=== PATIENT | male | born 1985 | race Caucasian/White ===

== ENCOUNTER 2017-01-06 16:40 | Emergency (ER) | payer BC, OTHER ==
[~2017-01-06] VITALS: Ht 185.4 cm; Wt 82.0 kg
[2017-01-06 18:22] VITALS: BP 125/77; PULSE 69; RESP 17; TEMP 97.4; O2SAT 98
[2017-01-06 18:41] LABS: AUTOMATED NEUTROPHIL # 4.6 TH/MM3 (1.8-7.7); BASOPHIL % 0.6 % (0.0-2.0); EOSINOPHIL # 0.2 TH/MM3 (0-0.4); EOSINOPHIL % 2.4 % (0.0-4.0); HEMATOCRIT 40.7 % (39.0-51.0); HEMO FLAGS DIFF FINAL; LYMPH % 27.3 % (9.0-44.0); MEAN CELL VOLUME 86.2 FL (80.0-100.0); MEAN CORPUSCULAR HEMOGLOBIN 28.8 PG (27.0-34.0); MEAN CORPUSCULAR HGB CONC 33.4 % (32.0-36.0); MONO % 6.7 % (0.0-8.0); PLATELET COUNT 273 TH/MM3 (150-450); RED BLOOD COUNT 4.72 MIL/MM3 (4.50-5.90); RED CELL DISTRIBUTION WIDTH 13.6 % (11.6-17.2); WHITE BLOOD COUNT 7.3 TH/MM3 (4.0-11.0)
[2017-01-06 19:01] LABS: ALT (GPT) 18 U/L (12-78); ANION GAP 6 MEQ/L (5-15); AST (GOT) 9 U/L (15-37); BICARBONATE 28.7 MEQ/L (21.0-32.0); BLOOD UREA NITROGEN 12 MG/DL (7-18); CHLORIDE 109 MEQ/L (98-107); GLOMERULAR FILTRATION RATE 103 ML/MIN (>89); POTASSIUM 4.3 MEQ/L (3.5-5.1); SODIUM (NA) 144 MEQ/L (136-145)
[2017-01-06 19:03] LABS: ALKALINE PHOSPHATASE 56 U/L (45-117); TOTAL BILIRUBIN ADULT 0.6 MG/DL (0.2-1.0)
--- NOTE | 2017-01-06 19:49 | PD ---
HPI Chief Complaint: Psychiatric Symptoms Time Seen by Provider: 19:46 Travel History International Travel<30 days: No Contact w/Intl Traveler<30days: No Traveled to known affect area: No History of Present Illness HPI 31-year-old male that presents to the ED for evaluation of psych. Patient was [place] acted by police after apparently he called the suicide hotline. Per patient he is having difficulty secondary to losing his marriage and per patient he believes that his is not telling him everything. He states that he is being [place] acted in the past but denies being medicated for anything. He denies any history of depression or anxiety. Denies any thoughts of hurting anyone else other than himself. No drugs or alcohol. Denies any medical issues. No recent injuries or falls. No allergies to medication. Symptoms appear to be moderate. They appear to be worsening for the past couple of weeks. PFSH Past Medical History Anxiety: Yes Depression: Yes Diminished Hearing: No Tetanus Vaccination: Unknown Past Surgical History Tonsillectomy: Yes Social History Alcohol Use: No Tobacco Use: Yes (1 ppd) Substance Use: Yes (marijaunia occasionally) Allergies-Medications (Allergen,Severity, Reaction): Coded Allergies: No Known Allergies (Unverified , 01/06/17) Review of Systems Except as stated in HPI: all other systems reviewed are Neg Physical Exam Narrative GENERAL: SKIN: Warm and dry. HEAD: Atraumatic. Normocephalic. EYES: Pupils equal and round. No scleral icterus. No injection or drainage. ENT: No nasal bleeding or discharge. Mucous membranes pink and moist. Tongue is midline. No uvula deviation. NECK: Trachea midline. No JVD. CARDIOVASCULAR: Regular rate and rhythm. RESPIRATORY: No accessory muscle use. Clear to auscultation. Breath sounds equal bilaterally. GASTROINTESTINAL: Abdomen soft, non-tender, nondistended. Hepatic and splenic margins not palpable. MUSCULOSKELETAL: Extremities without clubbing, cyanosis, or edema. No obvious deformities. Full range of motion of the upper and lower extremities bilaterally. 2+ pulses bilaterally. NEUROLOGICAL: Awake and alert. No obvious cranial nerve deficits. Motor grossly within normal limits. Five out of 5 muscle strength in the arms and legs. Normal speech. PSYCHIATRIC: Depressed mood and affect; insight and judgment normal. Data Data Last Documented VS Vital Signs Date Time Temp Pulse Resp B/P Pulse Ox O2 Delivery O2 Flow Rate FiO2 4/13/17 18:22 97.4 69 17 125/77 98 Orders Complete Blood Count With Diff (01/06/17 18:18) Comprehensive Metabolic Panel (01/06/17 18:18) Psych Screen (01/06/17 18:18) Drug Screen, Random Urine (01/06/17 18:18) Alcohol (Ethanol) (01/06/17 18:18) Labs Laboratory Tests Test 01/06/17 18:32 White Blood Count 7.3 TH/MM3 Red Blood Count 4.72 MIL/MM3 Hemoglobin 13.6 GM/DL Hematocrit 40.7 % Mean Corpuscular Volume 86.2 FL Mean Corpuscular Hemoglobin 28.8 PG Mean Corpuscular Hemoglobin 33.4 % Concent Red Cell Distribution Width 13.6 % Platelet Count 273 TH/MM3 Mean Platelet Volume 7.9 FL Neutrophils (%) (Auto) 63.0 % Lymphocytes (%) (Auto) 27.3 % Monocytes (%) (Auto) 6.7 % Eosinophils (%) (Auto) 2.4 % Basophils (%) (Auto) 0.6 % Neutrophils # (Auto) 4.6 TH/MM3 Lymphocytes # (Auto) 2.0 TH/MM3 Monocytes # (Auto) 0.5 TH/MM3 Eosinophils # (Auto) 0.2 TH/MM3 Basophils # (Auto) 0.0 TH/MM3 CBC Comment DIFF FINAL Differential Comment Sodium Level 144 MEQ/L Potassium Level 4.3 MEQ/L Chloride Level 109 MEQ/L Carbon Dioxide Level 28.7 MEQ/L Anion Gap 6 MEQ/L Blood Urea Nitrogen 12 MG/DL Creatinine 0.86 MG/DL Estimat Glomerular Filtration 103 ML/MIN Rate Random Glucose 95 MG/DL Calcium Level 9.2 MG/DL Total Bilirubin 0.6 MG/DL Aspartate Amino Transf 9 U/L (AST/SGOT) Alanine Aminotransferase 18 U/L (ALT/SGPT) Alkaline Phosphatase 56 U/L Total Protein 7.2 GM/DL Albumin 4.0 GM/DL Ethyl Alcohol Level LESS THAN 3 MG/DL MDM Medical Decision Making Medical Screen Exam Complete: Yes Emergency Medical Condition: Yes Medical Record Reviewed: Yes Interpretation(s) CBC & BMP Diagram 01/06/17 18:32 LFTs WNL tox negative Differential Diagnosis Depression versus suicidal ideation versus anxiety versus adjustment disorder versus mood disorder versus bipolar disorder versus schizophrenia versus paranoid disorder versus psychosis versus substance abuse versus alcohol abuse versus alcohol induced psychosis versus homicidality addition versus cutting versus personality disorder Narrative Course 31-year-old male that presents to the ED for evaluation of psych. Patient was properly examined and was found to have signs and symptoms consistent with psychiatric illness. No sign of acute medical distress. Patient was medically clear. Okay to be seen by psych. Mental health screening was discussed with the patient. Diagnosis Primary Impression: Mood disorder Ronald Samuels Jan 06, 2017 19:49
[2017-01-06 20:01] VITALS: BP 134/81; PULSE 63; RESP 16; O2SAT 100
[2017-01-06 21:48] LABS: AMPHETAMINE, URINE NEG (NEG); BARBITURATES, URINE NEG (NEG); COCAINE, URINE NEG (NEG)
[2017-01-06 22:26] VITALS: BP 106/52; PULSE 60; RESP 18; O2SAT 97
[2017-01-07 02:00] VITALS: BP 110/58; PULSE 55; RESP 18; O2SAT 97
[2017-01-07 06:19] VITALS: BP 110/67; PULSE 70; RESP 19; O2SAT 98
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
== END 2017-01-07 11:49 | disposition home or self-care (01) ==
LOC: NEDAMB 16:40 → NEPJ 01-07 11:49
DX: F32.9 Major depressive disorder, single episode, unspecified (principal); F41.8 Other specified anxiety disorders; F17.210 Nicotine dependence, cigarettes, uncomplicated
CPT/HCPCS: 80053; 80307; 85025; 99285

== ENCOUNTER 2018-10-04 00:54 | Inpatient (IN) ==
--- NOTE | 2018-10-04 01:47 | ED ---
HPI General Chief Complaint: Psychiatric Symptoms Stated Complaint: psych screen/[place] PD Time Seen by Provider: 10/04/18 01:10 Source: patient and police Mode of arrival: ambulatory Limitations: no limitations History of Present Illness HPI Narrative: 33-year-old white male presents emergency department under [place] act by PD. Patient had contacted police advising them he was suicidal. The patient is very vague on his plan on self-harm. He states that he is in a bad place. He also claims that he is hallucinating. He alleges that he has not drank alcohol on 4 days and stop smoking marijuana 3 days ago. Denies any other drugs. No medical complaints acutely. Has chronic left ankle pain after a fibular fracture. Currently in a walking boot. Related Data Home Medications Medication Instructions Recorded Confirmed No Known Home Medications 09/23/18 10/04/18 Allergies Allergy/AdvReac Type Severity Reaction Status Date / Time No Known Allergies Allergy Verified 10/04/18 01:47 Review of Systems ROS: all other systems reviewed are negative PMFSH History History Provided By: Patient Medical History Medical History Patient denies medical problems (Acute) Surgical History Surgical History Hx of tonsillectomy (Acute) Social History Social History Substance History: Active Abuse Second Hand Smoke Exposure: Yes Smoking Status: Current every day smoker Tobacco Type: Cigarettes How Often Do You Have a Drink Containing Alcohol: 2 to 3 times a week Recent Travel in [facility] within the Last 8 Weeks: No Recent Out of Country Travel within the Last 8 Weeks: No Exam Narrative Exam Narrative: GENERAL: Well-nourished, well-developed patient. SKIN: Warm and dry. HEAD: Normocephalic and atraumatic. EYES: No scleral icterus. No injection or drainage. ENT: No nasal drainage noted. Mucous membranes pink. Airway patent. NECK: Supple, trachea midline. Moves head freely without obvious discomfort. CARDIOVASCULAR: Regular rate and rhythm without murmurs, gallops, or rubs. RESPIRATORY: Breath sounds equal bilaterally. No accessory muscle use. GASTROINTESTINAL: Abdomen soft, non-tender, nondistended. EXTREMITIES: No cyanosis . Examination of the left lower extremity reveals trace edema in the lateral ankle and foot. Patient complains of distal fibular pain. Distal forefoot and toes are normal. Heel and Achilles are normal. Patient has intact sensation with good distal pulses. No pain in the knee or hip. The right lower extremity as well as upper extremities are unremarkable. BACK: Nontender without obvious deformity. No CVA tenderness. NEURO: Patient is alert and oriented. no sensorimotor deficits. Nonfocal. Normal speech. PSYCH: No delusions. No auditory or visual hallucinations. Course Initial Documented Vital Signs Temperature 98.1 F 10/04/18 01:04 Pulse Rate 66 10/04/18 01:04 Respiratory Rate 18 10/04/18 01:04 Blood Pressure 153/87 H 10/04/18 01:04 Pulse Oximetry 100 10/04/18 01:04 Last Documented Vital Signs Temperature 98.1 F 10/04/18 01:04 Pulse Rate 66 10/04/18 01:04 Respiratory Rate 18 10/04/18 01:04 Blood Pressure 153/87 H 10/04/18 01:04 Pulse Oximetry 100 10/04/18 01:04 Medical Decision Making MDM Narrative Medical decision making narrative: We will perform routine laboratory testing for medical clearance Patient's potassium 3.2. This is corrected with potassium 40 mEq p.o. The patient has been medically cleared. Medical Screen Exam Complete: Yes Emergency Medical Condition: Yes Differential Diagnosis Differential Diagnosis: MDM: High Differential diagnoses: Schizophrenia, schizoaffective disorder, bipolar, anxiety, depression, adjustment reaction, mood disorder NOS, ODD, depressive disorder NOS, psychosis NOS, substance induced mood disorder, infection, electrolyte abnormality, malingering. Mental health screening discussed with the patient. Psychiatric screen ordered. Lab Data Result diagrams: 10/04/18 02:00 Lab Results 10/04/18 10/04/18 Range/Units 02:00 02:00 Sodium 142 (136-145) meq/L Potassium 3.3 L (3.5-5.1) meq/L Chloride 105 (98-107) meq/L Carbon Dioxide 28.9 (21.0-32.0) meq/L Anion Gap 8 (5-15) meq/L BUN 9 (7-18) mg/dL Creatinine 0.65 (0.60-1.30) mg/dL Estimated GFR Greater than 89 (>89) mL/min Random Glucose 120 H (74-106) mg/dL Calcium 9.0 (8.5-10.1) mg/dL Total Bilirubin 0.8 (0.2-1.0) mg/dL AST 18 (15-37) U/L ALT 17 (12-78) U/L Alkaline Phosphatase 81 (45-117) U/L Total Protein 7.6 (6.4-8.2) g/dL Albumin 4.1 (3.4-5.0) g/dL Urine Opiates Screen Neg (Neg) Ur Barbiturates Screen Neg (Neg) Ur Amphetamines Screen Neg (Neg) U Benzodiazepines Scrn Neg (Neg) Urine Cocaine Screen Neg (Neg) U Cannabinoids Screen Pos H (Neg) Serum Alcohol Less than 3 (0-5) mg/dL Discharge Plan Discharge Disposition Patient Disposition: Sign Out(ED Internal Use Only) Discharge Condition Condition: Stable Physicians Team ED Provider: Kacy Jang ED Midlevel Provider: Mark Calabrese Primary Care Provider: Primary Care BangiAva Rxs /Orders / Referrals /Forms Prescriptions: No Action No Known Home Medications RF: 0 Discharge Interventions Interventions: Vital Signs Last Done: 10/04/18 01:50 Status ED Status: With Doctor
[2018-10-04 02:20] LABS: Amphetamine Screen,Urine Neg (Neg); Barbiturate Screen,Urine Neg (Neg); Cannabinoid Screen,Urine Pos (Neg); Cocaine Screen,Urine Neg (Neg)
[2018-10-04 02:22] LABS: Opiate Screen,Urine Neg (Neg)
[2018-10-04 02:26] LABS: Albumin 4.1 g/dL (3.4-5.0); Anion Gap 8 meq/L (5-15); Aspartate Aminotransferase 18 U/L (15-37); Blood Urea Nitrogen 9 mg/dL (7-18); Carbon Dioxide 28.9 meq/L (21.0-32.0); Chloride 105 meq/L (98-107); Glomerular Filtration Rate Greater Than 89 mL/min (>89); Glucose,Random 120 mg/dL (74-106); Potassium 3.3 meq/L (3.5-5.1); Sodium 142 meq/L (136-145)
[2018-10-04 02:27] LABS: Alanine Aminotransferase 17 U/L (12-78)
[2018-10-04 02:30] LABS: Alkaline Phosphatase 81 U/L (45-117); Total Protein 7.6 g/dL (6.4-8.2)
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
[2018-10-04] MEDS ORDERED: Aluminum/Magnesium/Simethacone Susp 30 ML UDC PO PRN (11:24)
[2018-10-04] MEDS ORDERED: LORazepam 1 MG Tablet PO PRN (11:28)
[2018-10-04] MEDS ORDERED: Haloperidol Inj 5 MG/ML Ampul IV.PUSH PRN (11:28)
[2018-10-05 07:11] LABS: Anion Gap 6 meq/L (5-15); Blood Urea Nitrogen 11 mg/dL (7-18); Calcium 9.6 mg/dL (8.5-10.1); Carbon Dioxide 27.6 meq/L (21.0-32.0); Chloride 109 meq/L (98-107); Cholesterol 140 mg/dL (120-200); Glomerular Filtration Rate Greater Than 89 mL/min (>89); Glucose,Random 105 mg/dL (74-106); Sodium 143 meq/L (136-145)
[2018-10-05 07:13] LABS: Chol/HDL Ratio 2.91 Ratio; HDL Cholesterol 48.1 mg/dL (40.0-60.0); LDL Cholesterol,Calculated 79 mg/dL (0-99); Triglycerides 66 mg/dL (42-150)
--- NOTE | 2018-10-05 13:06 | ECG ---
Date Performed: 10/05/2018 Time Performed: 12:52:52 PTAGE: 33 years EKG: Sinus rhythm EARLY REPOLARIZATION TALL T-WAVES, SUGGESTS HYPERKALEMIA ABNORMAL ECG NO PREVIOUS TRACING DOCTOR: Oscar Hylton Interpretating Date/Time 10/05/2018 13:04:25
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
[2018-10-05] MEDS: FLUoxetine 20 MG Capsule PO SCH (15:03)
[2018-10-05 17:21] LABS: Hemoglobin A1c 5.1 % (4.3-6.0)
[2018-10-05] MEDS: OLANZapine 10 MG Tablet PO SCH (20:19)
[2018-10-06] MEDS: FLUoxetine 20 MG Capsule PO SCH (08:05)
--- NOTE | 2018-10-06 10:48 | P.PNPSY ---
Subjective Chief Complaint: "I am in a bad place" Remarks: Patient seen for follow-up, chart reviewed, patient discussed with nursing staff ; we reviewed the patient's mood, thoughts, and behaviors from overnight and this morning. Nursing reports that the patient became agitated in the evening again statements that he needed to punch something and he eventually did punch the wall in the hallway but then calm down after the event and after given Atarax 50 mg p.o. The patient slept 6 hours overnight and has had no other episodes of agitation. He was seen sitting in the day room after breakfast. He was pleasant cooperative with interview and did display his nervous laughter that is incongruent with stated mood of depression. He was asked about the agitation over last evening and he reports "I had a lot of energy built up and I was feeling out of control." We discussed the expectation that current treatment plan will lead to decreased intensity of anxiety and depression and improved control of behaviors and he remains agreeable with plan. He denies any suicidal or homicidal ideations and he denies any active auditory or visual hallucinations. Review of Systems Musculoskeletal: Reports abnormal walking, Reports joint pain (Left ankle) Mental Status Examination Appearance: Appropriate Consciousness: Alert Orientation: x4 Motor Activity: Abnormal gait (Patient favors right leg while he walks due to recent injury to left ankle) Speech: Unremarkable Language: Adequate Fund of Knowledge: Adequate Attention and Concentration: Adequate Memory: Unremarkable Mood: Sad, Irritable Affect: Other (Incongruent laughter most likely related to anxiety) Thought Process & Associations: Intact, Logical, Goal directed Thought Content: Appropriate (No signs of responding to internal stimuli and he denies delusions today) Hallucination Type: None Delusion Type: None (But he continues to behave in a guarded manner) Suicidal Ideation: No Suicidal Plan: No Suicidal Intention: No Homicidal Ideation: No Homicidal Plan: No Homicidal Intention: No Insight: Fair Judgment: Impulsive Assessment and Plan - Assessment (1) Major depressive disorder, recurrent, severe with psychotic features Code(s): F33.3 - Major depressive disorder, recurrent, severe with psychotic symptoms Status: Acute (2) Alcohol abuse Code(s): F10.10 - Alcohol abuse, uncomplicated Status: Acute - Plan Plan: 10/05/2018. Initial treatment plan: 1. Continue with admission to inpatient psychiatry at [facility]; convert to voluntary/competent legal status. 2. Routine unit precautions. 3. Comfort medications ordered for as needed treatment of constipation, heartburn, diarrhea, and mild pain. 4. Hydroxyzine 50mg po q6H prn anxiety/insomnia. 5. Start Prozac 20 mg/day for treatment of depression and anxiety. 6. Start Zyprexa 10 mg at bedtime for adjunctive treatment of mood with psychosis. 7. Patient will participate in the unit programming to include group therapies , milieu therapy and recreational therapies. 8. Continue alcohol withdrawal protocol for at least 24 additional hours and will discontinue if no signs of withdrawals. 9. Discharge planning: The patient expressed interest in residential treatment for substance use disorders but recognizes he will need an opportunity to allow him to follow-up with psychiatry for treatment of his depression. Estimated LOS : 5-7 days 10/06/2018: Fair initial response to treatment; the patient was able to get adequate sleep last night and he is denying active thoughts of hurting self or others and he is also denying auditory hallucinations and he did not volunteer any delusional thinking. He seems to have tolerated the start of medications as well as the structure of inpatient treatment and would benefit from 2-3 more days to ensure risks of self-harm or harm to others have been fully mitigated. Continue inpatient psychiatric treatment plan and continued observations to mitigate risks. Discharge planning: The patient expressed interest in residential treatment for substance use disorders but recognizes he will need an opportunity to allow him to follow-up with psychiatry for treatment of his depression. Anticipate discharge early next week. Justification for Continued Inpatient Stay: Patient remains an elevated risk for self-harm and harm to others as evidenced by his aggressive behavior overnight and will require further inpatient stabilization and preparation of a safe discharge plan. Moving patient to a less restrictive environment at this time may result in decompensation.
--- NOTE | 2018-10-06 11:47 | P.DIET ---
Nutritional Evaluation Type of nutrition evaluation: initial Nutrition screening: Weight Loss > 10 lbs Screening comments: 10/06/18 WLS Objective - Diagnosis adjustment disorder with depressed mood - Objective Objective Comments: Meds: joseph leal Labs: random glucose 120 105 Assessment Assessment: Pt currently at nutritional risk r/t reported unplanned wt loss for more than 10lbs in last 2 months. Pt currently on a regular diet and is consuming 75-100% of most meals per chart. RD will continue to monitor pts nutritional status and recommend a PO supplement as needed. Continue to monitor pts PO intake and tolerance. Labs reviewed, dietitian following. Recommendations: 1. RD will continue to monitor pts nutritional status and recommend a PO supplement as needed 2. Continue to monitor pts PO intake and tolerance 3. Dietitian following Dietitian to Monitor: Lab values, Glucose level, Intake & Output, Diet tolerance , Weight change, PO Intake, Medical course
--- NOTE | 2018-10-06 13:42 | P.TTN ---
- Patient Problems Problems: 1. Discharge planning 2. Medication compliance 3. Knowledge deficit 4. Lack of coping skills - Progress Toward Goals Provider Present: Other (Dr. Edwardspatient is depressed, suffering from psychosis, patient needs to remain for further stabilization.) Psychiatric Counselors Present: Hiram Campbell Jr., [facility] (Patient is homeless, patient is seeking placement at the either the [facility] or [facility] for residential treatment. Counselor Orquidea will follow up.), Mary Henning [facility] Group Spec/RT/OT/GRACE Present: LESLY Torres (Patient attends select groups and is redirectable.) - Documentation Teaching Recipient: Family
--- NOTE | 2018-10-06 14:01 | XR ---
EXAM DATE: 10/06/2018 1:52 PM EST AGE/SEX: 33 years / Male INDICATIONS: Left ankle pain evaluate ankle fracture. CLINICAL DATA: This is the patient's initial encounter. Patient reports that signs and symptoms have been present for 2 months and indicates a pain score of 3/10. MEDICAL/SURGICAL HISTORY: . Left ankle fracture. Tonsillectomy. COMPARISON: [facility], ANKLE COMPLETE LEFT MIN 3V, 07/27/2018. . FINDINGS: There is a fracture of the distal fibula above the lateral malleolus without any significan t angulation of the patient. The fracture appears healed for the most part for technique. CONCLUSION: Old fracture of the distal fibula appears healed for the most part for technique. Electronically signed by: Mary Grace Godinez MD Board Certified Radiologist 10/06/2018 1:59 PM EST
[2018-10-06] MEDS: OLANZapine 10 MG Tablet PO SCH (20:53)
[2018-10-07] MEDS: FLUoxetine 20 MG Capsule PO SCH (08:45)
--- NOTE | 2018-10-07 15:57 | P.PNPSY ---
Subjective Chief Complaint: "I am in a bad place" Remarks: Patient was seen and case discussed with nursing. Patient is psychotic during this interview. He is religiously preoccupied. Patient says she has bothersome homicidal ideations towards no one in particular. He denies any active intent or plan of hurting anybody here or an outside. He was asked to speak to staff if he developed any intent of doing so. Patient is having hallucinations from J [place]. Ideas of reference. Review of Systems All other systems reviewed negative except as stated in HPI Mental Status Examination Appearance: Appropriate Consciousness: Alert Orientation: x4 Motor Activity: Abnormal gait (Patient favors right leg while he walks due to recent injury to left ankle) Speech: Unremarkable Language: Adequate Fund of Knowledge: Adequate Attention and Concentration: Adequate Memory: Unremarkable Mood: Sad, Irritable Affect: Other (Incongruent laughter most likely related to anxiety) Thought Process & Associations: Disorganized Thought Content: Appropriate (No signs of responding to internal stimuli and he denies delusions today) Hallucination Type: None Delusion Type: None (But he continues to behave in a guarded manner) Suicidal Ideation: No Suicidal Plan: No Suicidal Intention: No Homicidal Ideation: Yes Homicidal Plan: No Homicidal Intention: No Insight: Fair Judgment: Impulsive Assessment and Plan - Assessment (1) Major depressive disorder, recurrent, severe with psychotic features Code(s): F33.3 - Major depressive disorder, recurrent, severe with psychotic symptoms Status: Acute (2) Alcohol abuse Code(s): F10.10 - Alcohol abuse, uncomplicated Status: Acute - Plan Plan: Consider increase in Zyprexa Justification for Continued Inpatient Stay: Patient would decompensate in a less restrictive setting
[2018-10-07] MEDS: OLANZapine 10 MG Tablet PO SCH (21:15)
[2018-10-08] MEDS: FLUoxetine 20 MG Capsule PO SCH (09:23)
--- NOTE | 2018-10-08 13:19 | P.PNPSY ---
Subjective Chief Complaint: "I am in a bad place" Remarks: Reviewed electronic medical record and discussed with nursing staff. Rounded with JESSICA Greco. Patient denies auditory or visual hallucinations. Denies SI/HI. States that he is currently homeless. He was planning to live with his grandmother but she does not want him to move in. He is hoping that Case Management can help him. He has no source of income. He is vague when answering questions . Preoccupied on his discharge and where he is going to live. Sad and mood is flat. Review of Systems All other systems reviewed negative except as stated in HPI Mental Status Examination Appearance: Appropriate Consciousness: Alert Orientation: x4 Motor Activity: Abnormal gait (Patient favors right leg while he walks due to recent injury to left ankle) Speech: Unremarkable Language: Adequate Fund of Knowledge: Adequate Attention and Concentration: Adequate Memory: Unremarkable Mood: Sad Affect: Other (Incongruent laughter most likely related to anxiety) Thought Process & Associations: Disorganized Thought Content: Appropriate (No signs of responding to internal stimuli and he denies delusions today) Hallucination Type: None Delusion Type: None (But he continues to behave in a guarded manner) Suicidal Ideation: No Suicidal Plan: No Suicidal Intention: No Homicidal Ideation: No Homicidal Plan: No Homicidal Intention: No Insight: Fair Judgment: Impulsive Assessment and Plan - Assessment (1) Major depressive disorder, recurrent, severe with psychotic features Code(s): F33.3 - Major depressive disorder, recurrent, severe with psychotic symptoms Status: Acute - Plan Plan: Continue current treatment plan. Justification for Continued Inpatient Stay: Moving patient to a less restrictive environment may result in his decompensation.
[2018-10-08] MEDS: OLANZapine 10 MG Tablet PO SCH (20:18)
[2018-10-09] MEDS: FLUoxetine 20 MG Capsule PO SCH (08:25)
--- NOTE | 2018-10-09 14:21 | P.PNPSY ---
Subjective Chief Complaint: "I am in a bad place" Remarks: Patient seen for follow-up, chart reviewed, patient discussed with nursing staff ; we reviewed the patient's mood, thoughts, and behaviors from overnight and this morning. Nurse reports the patient slept well but his behavior remains odd as evidenced by his evasiveness with questioning by staff and incongruent laughter. Patient was observed seemingly acting appropriately with peers in the milieu but upon questioning he is guarded with provider and unable to give definitive answers to his questions. He continues to describe feelings of derealization and not knowing the date and makes comments about "I do not even know who I really am". Patient was asked about suicidality and expressed an ambivalent about living or dying. He was asked about discharge plans and he stress and anxiety about being discharged too soon and without a definitive place to go. The patient was given a list of 9 different facilities that he could call to see about recovery treatment and residential placement but he has been uncooperative. Patient had an x-ray of his left ankle which showed that it was healing appropriately. Patient reports good tolerability of his medications and feels like he is doing better and certainly sleeping better. Mental Status Examination Appearance: Appropriate Consciousness: Alert Orientation: x4 Motor Activity: Abnormal gait (Patient favors right leg while he walks due to recent injury to left ankle) Speech: Unremarkable Language: Adequate Fund of Knowledge: Adequate Attention and Concentration: Adequate Memory: Unremarkable Mood: Sad, Anxious Affect: Other (Incongruent laughter most likely related to anxiety) Thought Process & Associations: Disorganized Thought Content: Appropriate (No signs of responding to internal stimuli and he denies delusions today) Hallucination Type: None Delusion Type: None (But he continues to behave in a guarded manner) Suicidal Ideation: No (Patient was evasive with questions about suicidality and expressed ambivalence about living) Suicidal Plan: No Suicidal Intention: No Homicidal Ideation: No Homicidal Plan: No Homicidal Intention: No Insight: Fair Judgment: Impulsive Assessment and Plan - Assessment (1) Major depressive disorder, recurrent, severe with psychotic features Code(s): F33.3 - Major depressive disorder, recurrent, severe with psychotic symptoms Status: Acute (2) Alcohol abuse Code(s): F10.10 - Alcohol abuse, uncomplicated Status: Acute - Plan Plan: 10/09/2018: Fair response to treatment; he has been calm cooperative and seems to be interacting appropriate with the milieu but his interactions with staff are very odd and he is unable to give definitive answers about whether he is still suicidal and whether he is motivated for his recovery. As was discussed on admission, there are secondary gain issues for this patient might be a cause for his atypical presentation but he will be given the benefit of the doubt with continued treatment of depression with psychotic symptoms with the hope that his disorganized thought processes sees with interactions with staff will improve in a definitive safety plan and discharge plan can be formulated. Continue current inpatient psychiatric treatment plan. Anticipate discharge this week; the patient is homeless and seeking recovery treatment options however he has been uncooperative and unrealistic with community options that are available for him. Justification for Continued Inpatient Stay: Patient remains an elevated risk for self-harm and will require further inpatient stabilization and preparation of a safe discharge plan. Moving patient to a less restrictive environment at this time may result in decompensation.
[2018-10-09] MEDS: OLANZapine 10 MG Tablet PO SCH (21:20)
[2018-10-10] MEDS: FLUoxetine 20 MG Capsule PO SCH (08:58)
--- NOTE | 2018-10-10 13:56 | P.PNPSY ---
Subjective Chief Complaint: "I am in a bad place" Remarks: Patient seen for follow-up, chart reviewed, patient discussed with nursing staff ; we reviewed the patient's mood, thoughts, and behaviors from overnight and this morning. Nursing reports the patient had 8 hours of restful sleep overnight. Nursing describes him as pleasant and cooperative. He has been denying suicidal or homicidal ideations and denies auditory or visual hallucinations. Nurse reports that the patient tends to pace on the unit and no longer appears to be favoring his ankle. The patient was seen at bedside after lunch in conjunction with his social media director. The patient reports satisfactory response to his Zyprexa to help him sleep at night and reports mood is improving. He expressed continued motivation to find a recovery treatment program for his substance use and he would like to go to [place] where he reports his uncle works for [employer]. The patient does not have any contact information for this uncle but he did agree to work with unit social media director to get accepted into the [employer] program. Patient reports feeling safe with plan to discharge to recovery program. Mental Status Examination Appearance: Appropriate Consciousness: Alert Orientation: x4 Motor Activity: Normal gait Speech: Unremarkable Language: Adequate Fund of Knowledge: Adequate Attention and Concentration: Adequate Memory: Unremarkable Mood: Sad, Anxious Affect: Other (Incongruent laughter most likely related to anxiety) Thought Process & Associations: Intact, Logical, Goal directed (Improved from yesterday's mental status) Thought Content: Appropriate (No signs of responding to internal stimuli and he denies delusions today) Hallucination Type: None Delusion Type: None (But he continues to behave in a guarded manner) Suicidal Ideation: No Suicidal Plan: No Suicidal Intention: No Homicidal Ideation: No Homicidal Plan: No Homicidal Intention: No Insight: Fair Judgment: Impulsive Assessment and Plan - Assessment (1) Major depressive disorder, recurrent, severe with psychotic features Code(s): F33.3 - Major depressive disorder, recurrent, severe with psychotic symptoms Status: Acute (2) Alcohol abuse Code(s): F10.10 - Alcohol abuse, uncomplicated Status: Acute - Plan Plan: 10/09/2018: Fair response to treatment; he has been calm cooperative and seems to be interacting appropriate with the milieu but his interactions with staff are very odd and he is unable to give definitive answers about whether he is still suicidal and whether he is motivated for his recovery. As was discussed on admission, there are secondary gain issues for this patient might be a cause for his atypical presentation but he will be given the benefit of the doubt with continued treatment of depression with psychotic symptoms with the hope that his disorganized thought processes sees with interactions with staff will improve in a definitive safety plan and discharge plan can be formulated. Continue current inpatient psychiatric treatment plan. Anticipate discharge this week; the patient is homeless and seeking recovery treatment options however he has been uncooperative and unrealistic with community options that are available for him. 10/10/2018: Good response to treatment; patient's behavior on the unit has continued to be appropriate and appear to be based on a lack of anxiety and a euthymic mood despite the patient's continued complaint of anxiety and depression. The patient is no longer complaining of suicidal or homicidal ideations and definitively denied suicidal ideations on today's exam. He has been minimally cooperative with discharge planning prior to today but will sit down with unit social media director and apply for a place and sober [facility]. If patient is not satisfied with placement in [facility] he will be offered with some alternatives and plan for discharge either Tuesday or . Continue current inpatient psychiatric treatment plan. Anticipate discharge this week; the patient is homeless and seeking recovery treatment options however he has been uncooperative and unrealistic with community options that are available for him. Justification for Continued Inpatient Stay: Patient remains an elevated risk for self-harm and will require further inpatient stabilization and preparation of a safe discharge plan. Moving patient to a less restrictive environment at this time may result in decompensation.
[2018-10-10 17:13] VITALS: RESP 18
[2018-10-10] MEDS: OLANZapine 10 MG Tablet PO SCH (20:11)
[2018-10-11] MEDS: FLUoxetine 20 MG Capsule PO SCH (08:02)
--- NOTE | 2018-10-11 17:05 | P.PNPSY ---
Subjective Chief Complaint: "I am in a bad place" Remarks: Patient seen for follow-up, chart reviewed, patient discussed with nursing staff ; we reviewed the patient's mood, thoughts, and behaviors from overnight and this morning. Nurse reports the patient slept 7 hours overnight. Patient had a difficult evening yesterday as he was reprimanded for violating boundary rules with another female patient. He became agitated and punched a wall reportedly after being moved from the 2600 ALT of 2700 all. Patient was able to be redirected and did not require an emergency treatment order. Patient was seen this morning lying in bed asleep after breakfast but easy to awaken. He expressed remorse for his behavior the evening before and he expressed understanding that he cannot be making physical contact with other patients. He denies any suicidal or homicidal ideations. When asked about his discharge planning he is evasive and give excuses as to why he is yet to make contact with [facility] as previously planned. The patient continues to complain of difficulty with focus and concentration and getting easily confused. The patient was asked about safety planning and how he would respond to adversity once discharged and he expressed a lack of confidence and lack of motivation to ask for help, "whatever happens happens. Patient was instructed to make contact with [facility] today and if that does not work out we will provide him a senior living options with the plan of discharge tomorrow. Mental Status Examination Appearance: Appropriate Consciousness: Alert Orientation: x4 Motor Activity: Normal gait Speech: Unremarkable Language: Adequate Fund of Knowledge: Adequate Attention and Concentration: Adequate Memory: Unremarkable Mood: Sad, Anxious Affect: Other (Incongruent laughter most likely related to anxiety) Thought Process & Associations: Intact, Logical, Goal directed (Improved from yesterday's mental status) Thought Content: Appropriate (No signs of responding to internal stimuli and he denies delusions today) Hallucination Type: None Delusion Type: None (But he continues to behave in a guarded manner) Suicidal Ideation: No Suicidal Plan: No Suicidal Intention: No Homicidal Ideation: No Homicidal Plan: No Homicidal Intention: No Insight: Fair Judgment: Impulsive Assessment and Plan - Assessment (1) Major depressive disorder, recurrent, severe with psychotic features Code(s): F33.3 - Major depressive disorder, recurrent, severe with psychotic symptoms Status: Acute (2) Alcohol abuse Code(s): F10.10 - Alcohol abuse, uncomplicated Status: Acute - Plan Plan: 10/09/2018: Fair response to treatment; he has been calm cooperative and seems to be interacting appropriate with the milieu but his interactions with staff are very odd and he is unable to give definitive answers about whether he is still suicidal and whether he is motivated for his recovery. As was discussed on admission, there are secondary gain issues for this patient might be a cause for his atypical presentation but he will be given the benefit of the doubt with continued treatment of depression with psychotic symptoms with the hope that his disorganized thought processes sees with interactions with staff will improve in a definitive safety plan and discharge plan can be formulated. Continue current inpatient psychiatric treatment plan. Anticipate discharge this week; the patient is homeless and seeking recovery treatment options however he has been uncooperative and unrealistic with community options that are available for him. 10/10/2018: Good response to treatment; patient's behavior on the unit has continued to be appropriate and appear to be based on a lack of anxiety and a euthymic mood despite the patient's continued complaint of anxiety and depression. The patient is no longer complaining of suicidal or homicidal ideations and definitively denied suicidal ideations on today's exam. He has been minimally cooperative with discharge planning prior to today but will sit down with unit social media marketing specialist and apply for a place and [facility]. If patient is not satisfied with placement in [facility] he will be offered with some alternatives and plan for discharge either Tuesday or . Continue current inpatient psychiatric treatment plan. Anticipate discharge this week; the patient is homeless and seeking recovery treatment options however he has been uncooperative and unrealistic with community options that are available for him. 10/11/2018: Good response to treatment; the patient is able to maintain more logical and goal-directed conversations with provider and he is obviously been able to develop good rapport with his peers therefore he is demonstrating the ability to advocate for himself and take care of his needs as an outpatient. Continue current inpatient treatment plan. The patient instructed to contact [facility] seeking admission and if that does not work out then he will be provided other options for walk- in. Anticipate discharge tomorrow. Justification for Continued Inpatient Stay: Patient remains an elevated risk for self-harm and will require further inpatient stabilization and preparation of a safe discharge plan. Moving patient to a less restrictive environment at this time may result in decompensation.
[2018-10-11] MEDS: OLANZapine 10 MG Tablet PO SCH (20:47)
[2018-10-12] MEDS: FLUoxetine 20 MG Capsule PO SCH (08:08)
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
[2018-10-12 11:53] VITALS: BP 123/58; PULSE 64; TEMP 97.6; O2SAT 96
== END 2018-10-12 11:30 | disposition home or self-care (01) | DRG 885 ==
LOC: NEPD 00:54 → NEDA 11:34 → H270 13:17 → H260 10-08 12:20 → H270 10-10 18:15
PROVIDERS: ADMIT Psychiatry & Neurology Psychiatry; ATTEND Psychiatry & Neurology Psychiatry